=== PATIENT | female | born 1970 | race Caucasian/White ===

== ENCOUNTER → 2017-10-16 11:53 | Outpatient (CLI) | payer OTHER, MEDICAID, SELFPAY | PROVIDERS: Family Provider Physician Assistant; PCP Physician Assistant | DX: Z87.440 Personal history of urinary (tract) infections (principal) | CPT/HCPCS: 87086 ==

== ENCOUNTER → 2018-01-19 14:59 | Outpatient (CLI) | payer OTHER, MEDICAID, SELFPAY | PROVIDERS: Visit Provider Physician Assistant | DX: N20.0 Calculus of kidney (principal); N39.0 Urinary tract infection, site not specified | CPT/HCPCS: 87077; 87086; 87186 ==

== ENCOUNTER → 2019-01-05 09:53 | Outpatient (CLI) | payer OTHER, SELFPAY ==
[2019-01-05 12:07] LABS: Appearance Urine UA CLEAR; Bilirubin Urine UA NEGATIVE (NEGATIVE); Color Urine UA YELLOW; Glucose Urine UA NEGATIVE (Negative); Ketones Urine UA NEGATIVE (NEGATIVE); Leukocyte Esterase Urine UA 1+ (NEGATIVE); Nitrite Urine UA POSITIVE (Negative); Occult Blood Urine UA 2+ (Negative); Protein Urine UA TRACE (Negative); Urobilinogen Urine UA 0.2 E.U./dL (0.2)
[2019-01-05 12:08] LABS: pH Urine UA 5.5 (4.5-8.0)
[2019-01-05 12:17] LABS: Bacteria Urine Many (>30); Culture Indicated Urine Specimen Cultured; RBC Urine 1-5/HPF (0-5/HPF); Squamous Epithelial Cell Urine 1-5 /HPF (0-5/HPF); WBC Urine 10-30/HPF (0-5/HPF)
== END ==
PROVIDERS: PCP Family Medicine; Visit Provider Nurse Practitioner
DX: M54.5 Low back pain (principal); N39.0 Urinary tract infection, site not specified; R30.0 Dysuria; R50.9 Fever, unspecified
CPT/HCPCS: 81001; 87077; 87086; 87186

== ENCOUNTER 2019-03-09 06:33 | Emergency (ER) | payer OTHER, SELFPAY ==
[2019-03-09 07:12] VITALS: BP 164/83; PULSE 75; RESP 16; TEMP 36.8; O2SAT 100; BMI 28.3
--- NOTE | 2019-03-09 07:28 | ED.FEMALEGU ---
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 She had pain so bad it dropped her to her knees. She took Advil prior to arrival which has seemed to taken away her pain. She says that she never gets urinary frequency or dysuria with her infections. She says the last couple days she has been nauseous and had low-grade fever of 100 but she has no abdominal pain no vomiting. She says her back pain radiates across all her low back it has only been going on for few hours. Female Urogenital Radiation: L Flank and R Flank Related Data Previous Rx's Medication Instructions Recorded diph,pertuss(acel),tet vac(PF) 0.5 ml IM ONCE #0.5 ml 04/21/18 albuterol sulfate 90 mcg/actuation 2 puff INHALATION QID #8.5 gram 11/28/18 aerosol inhaler fluticasone propionate 110 1 puff INHALATION BID #36 gram 11/28/18 mcg/actuation HFA aerosol inhaler ciprofloxacin HCl 500 mg tablet 500 mg PO Q12H #20 tab 01/05/19 Allergies Allergy/AdvReac Type Severity Reaction Status Date / Time No Known Allergies Allergy Uncoded 03/09/19 07:15 Review of Systems Review of Systems Narrative: GENERAL: Denies chills, fatigue, malaise, fever, sweats, travel HEENT: Denies sinus pain, ear pain, sore throat, difficulty swallowing, neck pain RESPIRATORY: Denies dyspnea, cough, wheezing, hemoptysis, sputum. CARDIOVASCULAR: Denies chest pain, palpitations, orthopnea, edema GASTROINTESTINAL: Denies nausea, vomiting, abdominal pain, diarrhea, constipation, melena. : See HPI MUSCULOSKELETAL: Denies weakness, joint pain, or bony pain SKIN: No rash, no erythema, no pruritus NEUROLOGIC: Denies weakness, dizziness, headache, numbness, change in speech, confusion PSYCHIATRIC: No concerning psychosocial issues. 12 point review of systems is negative except for those stated above and HPI Patient History Medical History Kidney pain (Acute) Kidney stone (Acute) alcohol intake frequency: 0-2 drinks per day Substance Use Type: does not use Exam Initial Vital Signs Initial Vital Signs: Vital Signs Temperature 98.3 F 03/09/19 07:12 Pulse Rate 75 03/09/19 07:12 Respiratory Rate 16 03/09/19 07:12 Blood Pressure 164/83 H 03/09/19 07:12 Pulse Oximetry 100 03/09/19 07:12 GENERAL: Well-appearing, well-nourished and in no acute distress. HEENT: Head atraumatic,EOMI, pupils reactive, face symmetric, moist mucous membranes CARDIOVASCULAR: Regular rate and rhythm without murmurs, rubs or gallops. RESPIRATORY: Breath sounds equal bilaterally, no wheezes rales or rhonchi. ABDOMEN: Soft, nontender. Normoactive bowel sounds all 4 quadrants. No guarding or rebound. BACK: Lower lumbar pain : Minimal bilateral CVA tenderness EXTREMITIES: Normal range of motion, no clubbing or edema. Neurovascularly intact NEUROLOGICAL: Alert and oriented x4.Normal gait and speech. SKIN: Warm, dry, no laceration, no petechiae, no rashes or lesions. Course Orders Ordered: ED Orders 03/09/19 07:20 Urine Microscopic Stat Vital Signs Vital signs: Vital Signs - 8 hr 03/09/19 07:12 03/09/19 07:52 Temperature 98.3 F Pulse Rate 75 Respiratory Rate 16 18 Blood Pressure 164/83 H Pulse Oximetry 100 MDM - Female Genitourinary Lab Data Attestation: I reviewed the patient's lab results. Labs: Lab Results 03/09/19 Range/Units 07:20 Urine RBC 1-5/hpf (0-5/HPF) Urine WBC None seen (0-5/HPF) Urine Bacteria None seen (None) Ur Culture Indicated? Cult not indicated Urine Dip Bedside Urine Glucose Negative Bedside Urine Bilirubin - Negative Bedside Urine Ketone - Negative Urine Specific [place] 1.005 Bedside Urine Occult Blood +/- Bedside Urine pH 6.5 Bedside Urine Protein - Negative Bedside Urine Urobilinogen - Negative Bedside Urine Nitrite - Negative Bedside Urine Leukocytes - Negative Esterase MDM Narrative Medical decision making narrative: Patient actually did grow E coli 01/05/2019 she is placed Cipro. At that time her urine did have leukocytes and blood. At this time sudden onset of back pain sharp shooting worse with movement sounds musculoskeletal. Although I did discuss with her the possible it is an early infection and to wait and see follow-up with her PCP. Her pain is bilateral which is not consistent with kidney stone, and she says it does not feel like kidney stone. Discharge Plan Departure Patient Disposition: Home Clinical Impression: Back pain Qualifiers: Back pain location: low back pain Chronicity: acute Back pain laterality: bilateral Sciatica presence: without sciatica Qualified Code(s): M54.5 - Low back pain Discharge Date/Time: 03/09/19 07:52 Instructions: DI for Low Back Pain Activity Restrictions/Additional Instructions: *You have been diagnosed with back pain *What to do: At this time it is possible that you have an early infection. At this time I recommend waiting for culture to return and not starting on immediate antibiotic however if symptoms worsen or culture is positive eat you may need antibiotics. If culture is positive we will call you in 2-3 days. *Continue to take medications as directed *Follow up with your primary care provider in 2-3 days *Return to ER if you should have increasing back pain fever persistent vomiting or any new, worsening or concerning symptoms Prescriptions: No Action Adacel(Tdap Adolesn/Adult)(PF) 2 Lf-(2.5-5-3-5 mcg)-5Lf/0.5 mL suspension 0.5 ml IM ONCE Qty: 0.5 RF: 0 ProAir HFA 90 mcg/actuation HFA aerosol inhaler 2 puff INHALATION QID Qty: 8.5 RF: 5 Flovent HFA 110 mcg/actuation HFA aerosol inhaler 1 puff INHALATION BID Qty: 36 RF: 3 ciprofloxacin HCl [Cipro] 500 mg tablet 500 mg PO Q12H Qty: 20 RF: 0 Referrals: Mona Wilkins DO [Primary Care Provider] -
[2019-03-09 07:45] LABS: Bacteria Urine None Seen; WBC Urine None Seen (0-5/HPF)
[2019-03-09 07:52] VITALS: RESP 18
[2019-03-09 08:10] LABS: Culture Indicated Urine Cult Not Indicated; RBC Urine 1-5/HPF (0-5/HPF)
== END 2019-03-09 07:52 | disposition home or self-care (01) ==
PROVIDERS: Emergency Provider Emergency Medicine; PCP Family Medicine
DX: M54.5 Low back pain (principal)
CPT/HCPCS: 81003; 81015; 99281; 99282

== ENCOUNTER → 2019-05-28 18:59 | Outpatient (CLI) | payer OTHER, SELFPAY | PROVIDERS: PCP Family Medicine; Visit Provider Physician Assistant | DX: R10.9 Unspecified abdominal pain (principal) | CPT/HCPCS: 87086 ==

== ENCOUNTER 2019-05-28 19:16 | Emergency (ER) | payer OTHER, SELFPAY ==
--- NOTE | 2019-05-28 19:23 | DI.CT.S_ITS ---
PROCEDURE: CT ABDOMEN PELVIS WO CON INDICATIONS: right flank pain, history of 3 ureteral stones and UTI TECHNIQUE: Noncontrast 5 mm thick sections acquired from the diaphragms to the symphysis. 5 mm coronal and sagittal reformats were then performed. For radiation dose reduction, the following was used: automated exposure control, adjustment of mA and/or kV according to patient size. COMPARISON: [facility], CT, KIDNEY/ URETER/BLADDER, 02/28/2017, 13:33. FINDINGS: Image quality: Excellent. ABDOMEN: Lung bases: Lung bases are clear. Heart size is normal. Solid organs: Liver is normal in size. Gallbladder is unremarkable. Pancreas is normal in contours. Spleen is normal in size. No adrenal nodules. Right kidney: Multiple very tiny nonobstructing stones. Paintbrush calcifications consistent with renal tubular acidosis. Moderate to severe hydronephrosis. Right ureter: Dilated to the level of the distal ureter just above the ureterovesical junction, where there is an obstructing 3 x 7 mm stone. Left kidney: Chronically small and shrunken with a calcifications and a single 3 mm nonobstructing lower pole stone. Left ureter: Unremarkable. Peritoneum and bowel: Unenhanced bowel loops demonstrate normal wall thickness and caliber. No free fluid or air. Nodes and vessels: No retroperitoneal or mesenteric adenopathy by size criteria. Aorta and inferior vena cava are normal in caliber. Miscellaneous: No ventral hernias. PELVIS: Genitourinary: Bladder wall thickness is normal. Miscellaneous: No inguinal hernias or adenopathy. Bones: No suspicious bony lesions. No vertebral body compression fractures. IMPRESSION: 1. A 3 x 7 mm stone in the distal right ureter results in moderate to severe right hydronephrosis. 2. Findings in the right kidney are consistent with renal tubular acidosis. There are also multiple tiny nonobstructing stones in the right kidney. 3. Chronically small and shrunken left kidney, which contains a 3 mm nonobstructing stone. Dictated by: Thang Landeros M.D. on 05/28/2019 at 20:33 Approved by: Thang Landeros M.D. on 05/28/2019 at 20:38
[2019-05-28 19:31] LABS: Bacteria Urine None Seen
[2019-05-28 19:32] VITALS: BP 162/82; PULSE 72; RESP 15; TEMP 36.6; O2SAT 99; BMI 29.2
[2019-05-28 19:36] LABS: Appearance Urine UA CLEAR; Bilirubin Urine UA NEGATIVE (NEGATIVE); Color Urine UA YELLOW; Glucose Urine UA NEGATIVE (Negative); Ketones Urine UA NEGATIVE (NEGATIVE); Leukocyte Esterase Urine UA NEGATIVE (NEGATIVE); Nitrite Urine UA NEGATIVE (Negative); Occult Blood Urine UA 1+ (Negative); Protein Urine UA TRACE (Negative); Urobilinogen Urine UA 0.2 E.U./dL (0.2)
[2019-05-28 19:44] LABS: Culture Indicated Urine Cult Not Indicated; RBC Urine 5-10/HPF (0-5/HPF); Squamous Epithelial Cell Urine 0-1 /HPF (0-5/HPF); WBC Urine 1-5/HPF (0-5/HPF)
[2019-05-28] MEDS: KETOROLAC 60 MG/2 ML VIAL 30 MG IV (19:47)
[2019-05-28] MEDS: ONDANSETRON 4 MG/2 ML INJ IV (19:47)
[2019-05-28 20:40] LABS: Add Manual Diff / Slide Review NO; Basophils Absolute Auto 100 /uL (0-100); Basophils Percent Auto 0.7 % (0-2); Eosinophils Absolute Auto 300 /uL (0-450); Eosinophils Percent Auto 3.7 % (2-4); Hematocrit 42.1 % (36-46); Hemoglobin 14.1 g/dL (12.0-16.0); Lymphocytes Absolute Auto 2300 /uL (1100-4500); Lymphocytes Percent Auto 26.6 % (25-40); Mean Corpuscular HGB Conc 33.5 % (30-36); Mean Corpuscular Hemoglobin 30.8 PG (26-34); Mean Corpuscular Volume 91.7 fL (80-100); Monocytes Absolute Auto 800 /uL (0-900); Monocytes Percent Auto 9.1 % (3-14); Neutrophils Absolute Auto 5100 /uL (1500-7000); Neutrophils Percent Auto 59.9 % (50-75); Platelet Count 219 X10^3/uL (150-400); Red Blood Cell Count 4.59 X10^6/uL (4.0-5.2); Red Cell Distribution Width 13.6 % (11.6-14.8); White Blood Cell Count 8.6 X10^3/uL (4.5-11.0)
--- NOTE | 2019-05-28 21:00 | ED_ITS ---
HPI - Female Genitourinary General Chief complaint: Urogenital-Female Stated complaint: possible uti Time Seen by Provider: 05/28/19 19:22 Source: patient Mode of arrival: Family Vehicle Limitations: no limitations History of Present Illness HPI Narrative: The patient is a 48-year-old female who presented with severe right flank pain to the walk-in clinic. The healthcare worker in the walk-in clinic tried to order an outpatient CT scan of her abdomen however was unable to do so the patient was sent to the emergency department. In the clinic the patient had hematuria with leukocyte esterase positive. He question whether not the patient had a urinary tract infection or a kidney stone. The patient describes the pain and discomfort is severe crampy discomfort that is intermittently sharp. She states that it feels like when she has had kidney stones in the past. She denies any fall or injury. She does not have a history of hypertension or diabetes mellitus. She denies any fever chills sweats headache shortness of breath cough chest pain palpitations or dizziness. She has been nauseous but has had no vomiting or diarrhea. She has increased urinary frequency and mild dysuria. She does not smoke cigarettes or drink alcohol. Related Data Previous Rx's Medication Instructions Recorded diph,pertuss(acel),tet vac(PF) 0.5 ml IM ONCE #0.5 ml 04/21/18 albuterol sulfate 90 mcg/actuation 2 puff INHALATION QID #8.5 gram 11/28/18 aerosol inhaler fluticasone propionate 110 1 puff INHALATION BID #36 gram 11/28/18 mcg/actuation HFA aerosol inhaler Allergies Allergy/AdvReac Type Severity Reaction Status Date / Time No Known Allergies Allergy Verified 05/28/19 19:29 Review of Systems Review of Systems Narrative: Her review of systems were all negative except for those mentioned in the history of present illness. Patient History Medical History Kidney pain (Acute) Kidney stone (Acute) alcohol intake frequency: 0-2 drinks per day Substance Use Type: does not use Exam Narrative Exam Narrative: PHYSICAL EXAM: CONSTITUTIONAL: Awake, Alert, Oriented, Coherent, appears to be in moderate distress at the time that I am seeing her. HEAD: AT/NC EENT: PERRL, FROM of eyes, no discharge,. Oral mucosa is moist and pink, posterior pharynx is without erythema or exudate. NECK: Supple, no obvious JVD, Trachea is midline without stridor, SPINE: No gross deformity, no palpable tenderness of the cervical, thoracic, lumbar or sacral spine. Mild right costovertebral angle tenderness. THORAX: No deformity, retractions, chest wall tenderness,. LUNGS: Clear with symmetrical breath sounds without respiratory distress HEART: Normal heart tones, regular rhythm and rate without murmur. ABDOMEN: Soft, mild tenderness on palpation of the right anterior flank without guarding rebound or rigidity. There are no palpable organomegaly or masses n oted. EXTREMITIES: No edema, cyanosis, deformity or tenderness. SKIN: No rash, bruising, petechiae or purpura. NEURO: Awake, alert, oriented, conversive, cranial nerves II-XII are symmetrical and normal, moves all 4 extremities and is ambulatory Initial Vital Signs Initial Vital Signs: Vital Signs Temperature 98 F 05/28/19 19:32 Pulse Rate 72 05/28/19 19:32 Respiratory Rate 15 05/28/19 19:32 Blood Pressure 162/82 H 05/28/19 19:32 Pulse Oximetry 99 05/28/19 19:32 Course Course Course Narrative: 2100: The patient declines any laboratory draw. Her white blood count his 8.6 with a hemoglobin of 14.1. We do not know what her renal function and electrolytes are. Her urinalysis reveals hematuria with minimal white blood cells and minimal epithelial cells and is not indicated for culture and sensitivity. There is no evidence of any urinary tract infection at this time. A noncontrast CT of her abdomen and pelvis reveals: 1. A 3 x 7 mm stone in the distal right ureter results in moderate to severe right hydronephrosis. 2. Findings in the right kidney are consistent with renal tubular acidosis. There are also multiple pole tiny nonobstructing stones in the right kidney. 3. Chronically small and shrunken left kidney which contains 3 mm nonobstructing stone. 2144: We are calling to try and find out if is available to see the patient in follow-up. Otherwise we will send the patient or refer the patient to Urology. I went into the patient's room to inform her of the arrangements and follow-up that we had arranged and she was not in the room. We could not find the patient and we believe the patient eloped. I spoke with Dr. Nick who wanted the patient to call his office in the morning and make a follow-up appointment. He recommended that we place the patient on tramadol 50-100 mg every 6 hours as needed for pain and discomfort in conjunction with 500 to a 1000 mg of acetaminophen. He prescribed also Tamulosin 0.4mg daily for the next 5 days. Most likely she will pass the stone. The nurses state that the patient significantly improved after the Toradol. Orders Ordered: Discontinued Medications Ketorolac Tromethamine (Toradol) 30 mg IV NOW ONE Stop: 05/28/19 19:24 Last Admin: 05/28/19 19:47 Dose: 30 mg Documented by: TOMAS Ondansetron HCl (Zofran) 4 mg IV NOW ONE Stop: 05/28/19 19:24 Last Admin: 05/28/19 19:47 Dose: 4 mg Documented by: TOMAS Vital Signs Vital signs: Vital Signs - 8 hr 05/28/19 21:36 Pulse Rate 73 Respiratory Rate 14 Blood Pressure [Right Arm] 171/79 H Pulse Oximetry 99 MDM - Female Genitourinary Lab Data Result diagrams: 05/28/19 20:23 05/28/19 Unknown Labs: Lab Results 05/28/19 05/28/19 05/28/19 Range/Units 19:28 20:23 Unknown WBC 8.6 (4.5-11.0) X10^3/uL RBC 4.59 (4.0-5.2) X10^6/uL Hgb 14.1 (12.0-16.0) g/dL Hct 42.1 (36-46) % MCV 91.7 (80-100) fL MCH 30.8 (26-34) PG MCHC 33.5 (30-36) % RDW 13.6 (11.6-14.8) % Plt Count 219 (150-400) X10^3/uL Neut % (Auto) 59.9 (50-75) % Lymph % (Auto) 26.6 (25-40) % [place] % (Auto) 9.1 (3-14) % Eos % (Auto) 3.7 (2-4) % Baso % (Auto) 0.7 (0-2) % Neut # (Auto) 5100 (7975-9417) /uL Lymph # (Auto) 2300 (5891-0950) /uL [place] # (Auto) 800 (0-900) /uL Eos # (Auto) 300 (0-450) /uL Baso # (Auto) 100 (0-100) /uL Sodium Cancelled Potassium Cancelled Chloride Cancelled Carbon Dioxide Cancelled BUN Cancelled Creatinine Cancelled Estimated GFR Cancelled BUN/Creatinine Ratio Cancelled Glucose Cancelled Calcium Cancelled Total Bilirubin Cancelled AST Cancelled ALT Cancelled Alkaline Phosphatase Cancelled Total Protein Cancelled Albumin Cancelled Globulin Cancelled Albumin/Globulin Ratio Cancelled Urine Color Yellow Urine Appearance Clear Urine pH 6.0 (4.5-8.0) Ur Specific [place] 1.020 (1.000-1.035) Urine Protein Trace H (Negative) Urine Glucose (UA) Negative (Negative) g/dL Urine Ketones Negative (NEGATIVE) Urine Occult Blood 1+ H (Negative) Urine Nitrate Negative (Negative) Urine Bilirubin Negative (NEGATIVE) Urine Urobilinogen 0.2 (0.2) E.U./dL Ur Leukocyte Esterase Negative (NEGATIVE) Urine RBC 5-10/hpf H (0-5/HPF) Urine WBC 1-5/hpf (0-5/HPF) Ur Squamous Epith Cells 0-1 /hpf (0-5/HPF) Urine Bacteria None seen (None) Ur Culture Indicated? Cult not indicated Discharge Plan Departure Patient Disposition: Left Against Medical Advice Clinical Impression: Left against medical advice Discharge Date/Time: 05/28/19 22:00 Prescriptions: No Action Adacel(Tdap Adolesn/Adult)(PF) 2 Lf-(2.5-5-3-5 mcg)-5Lf/0.5 mL suspension 0.5 ml IM ONCE Qty: 0.5 RF: 0 ProAir HFA 90 mcg/actuation HFA aerosol inhaler 2 puff INHALATION QID Qty: 8.5 RF: 5 Flovent HFA 110 mcg/actuation HFA aerosol inhaler 1 puff INHALATION BID Qty: 36 RF: 3 Stand Alone Forms: Against Medical Advice ED Sign-out Cosign ED Attending Cosignature Attestation: I was immediately available in the department for consultation. This documentation has been reviewed and I agree with assessment and plan. Supervised by Dl Guerrero MD
--- NOTE | 2019-05-28 21:34 | PC.NURSE ---
Patient refused additional lab draws from the director of labor and delivery. She also requested to have her IV removed. Patient stated that her pain goals were met and no longer wished to have an IV because it was bothering her.
[2019-05-28 21:36] VITALS: BP 171/79; PULSE 73; RESP 14; O2SAT 99
== END 2019-05-28 22:00 | disposition left against medical advice (07) ==
PROVIDERS: Emergency Provider Emergency Medicine; PCP Family Medicine
DX: N20.0 Calculus of kidney (principal); Z87.442 Personal history of urinary calculi; R31.9 Hematuria, unspecified; N13.30 Unspecified hydronephrosis; R10.9 Unspecified abdominal pain
CPT/HCPCS: 36415; 74176; 81001; 85025; 87086; 96374; 96375; 99284; J1885; J2405

== ENCOUNTER → 2019-07-26 15:43 | Outpatient (CLI) | payer OTHER, SELFPAY ==
[2019-07-27 06:16] LABS: COVID19 Sendout Not Detected (Not Detect)
== END ==
PROVIDERS: PCP Family Medicine; Visit Provider Registered Nurse
DX: R06.02 Shortness of breath (principal)
CPT/HCPCS: 87635

== ENCOUNTER → 2020-01-20 10:53 | Outpatient (CLI) | payer OTHER, BC, SELFPAY ==
[2020-01-20 12:25] LABS: Add Manual Diff / Slide Review NO; Basophils Absolute Auto 100 /uL (0-100); Basophils Percent Auto 0.9 % (0-2); Eosinophils Absolute Auto 400 /uL (0-450); Eosinophils Percent Auto 7.2 % (2-4); Hematocrit 39.5 % (36-46); Hemoglobin 13.4 g/dL (12.0-16.0); Lymphocytes Absolute Auto 1500 /uL (1100-4500); Lymphocytes Percent Auto 25.5 % (25-40); Mean Corpuscular HGB Conc 33.9 % (30-36); Mean Corpuscular Hemoglobin 30.6 PG (26-34); Mean Corpuscular Volume 90.1 fL (80-100); Monocytes Absolute Auto 400 /uL (0-900); Monocytes Percent Auto 6.7 % (3-14); Neutrophils Absolute Auto 3600 /uL (1500-7000); Neutrophils Percent Auto 59.7 % (50-75); Platelet Count 211 X10^3/uL (150-400); Red Blood Cell Count 4.39 X10^6/uL (4.0-5.2); Red Cell Distribution Width 13.2 % (11.6-14.8)
[2020-01-20 12:34] LABS: Hemoglobin A1C% w Est Avg Glu 5.5 % (4.0-6.0)
[2020-01-20 12:48] LABS: Alanine Aminotransferase 52 IU/L (<35); Albumin 4.7 g/dL (3.5-5.0); Albumin Globulin Ratio 1.8 (1.0-2.8); Alkaline Phosphatase 50 U/L (38-126); Aspartate Aminotransferase 39 IU/L (14-36); BUN Creatinine Ratio 24.4 (6-22); Bilirubin Total 0.3 mg/dL (0.2-1.3); Blood Urea Nitrogen 22 mg/dL (7-17); Calcium 10.3 mg/dL (8.4-10.2); Carbon Dioxide 31 mmol/L (22-32); Chloride 102 mmol/L (98-107); Cholesterol 197 mg/dL (140-199); Estimated Glomerular Filt Rate > 60.0 mL/min (>60); Globulin 2.6 g/dL (1.7-4.1); Glucose 84 mg/dL (70-100); HDL Cholesterol 94 mg/dL (40-60); HEMOLYSIS < 15 (0-50); LDL Cholesterol Calculated 82 mg/dL (<100); Sodium 137 mmol/L (137-145); Total Protein 7.3 g/dL (6.3-8.2); Triglycerides 105 mg/dL (35-150)
[2020-01-20 13:22] LABS: TSH w/ Reflex to FT4 2.44 uIU/mL (0.47-4.68)
== END ==
PROVIDERS: PCP Family Medicine; Referring Provider Family Medicine; Visit Provider Family Medicine
DX: E78.5 Hyperlipidemia, unspecified (principal); Z12.31 Encounter for screening mammogram for malignant neoplasm of breast; Z13.1 Encounter for screening for diabetes mellitus; Z13.228 Encounter for screening for other metabolic disorders; Z13.29 Encounter for screening for other suspected endocrine disorder; N95.1 Menopausal and female climacteric states; R53.83 Other fatigue
CPT/HCPCS: 36415; 80053; 80061; 83036; 84443; 85025

== ENCOUNTER → 2020-05-10 08:25 | Outpatient (CLI) | payer BC, SELFPAY ==
--- NOTE | 2020-05-10 08:26 | DI.RAD.S_ITS ---
PROCEDURE: XR KUB INDICATIONS: left flank pain, hx stones TECHNIQUE: One view of the abdomen acquired. COMPARISON: [facility], CT, KIDNEY/ URETER/BLADDER, 02/28/2017, 13:33. [facility], CT, CT ABDOMEN PELVIS WO CON, 05/28/2019, 20:00. [facility], CR, KUB XRAY (1 VIEW ABDOMEN), 06/16/2016, 10:07. [facility], CR, KUB XRAY (1 VIEW ABDOMEN), 05/18/2016, 12:06. FINDINGS: Surgical changes and devices: None. Bowel: Bowel gas pattern is normal. Soft tissues: No suspicious abdominal calcifications. There are calcifications over the pelvis bilaterally with in this patient with prior CT evidence of a distal obstructive right ureteral stone in May of 2019, and prior CT scanning. Visualized solid organ contours appear normal in size. Bones: No suspicious bony lesions. IMPRESSION: The prior CT scanning has documented an atrophic diminutive left kidney. A definite source of left-sided pain is not seen. A prior 05/[address] KUB had shown an obstructive distal right ureteral stone. Calcifications in the expected area of the distal right ureter are present but it is unclear whether these are phleboliths or distal ureteral stones. Given this concern and the absence of documented stone extraction on the right the ordering healthcare provider was called and the findings were discussed in detail with recommendation for consideration of follow-up to determine treatment of the documented distal right ureteral stone in this patient with 1 appropriate functioning kidney, on the right. CT KUB also could be obtained for documentation of resolution of the obstructive right distal ureteral stone. Dictated by: Dimas Pearce M.D. on 05/10/2020 at 9:25 Approved by: Dimas Pearce M.D. on 05/10/2020 at 9:40
[2020-05-10 09:54] LABS: Add Manual Diff / Slide Review NO; Basophils Absolute Auto 100 /uL (0-100); Basophils Percent Auto 1.3 % (0-2); Eosinophils Absolute Auto 300 /uL (0-450); Eosinophils Percent Auto 6.3 % (2-4); Hematocrit 39.8 % (36-46); Hemoglobin 13.5 g/dL (12.0-16.0); Lymphocytes Absolute Auto 1500 /uL (1100-4500); Lymphocytes Percent Auto 29.1 % (25-40); Mean Corpuscular HGB Conc 33.9 % (30-36); Mean Corpuscular Hemoglobin 30.6 PG (26-34); Mean Corpuscular Volume 90.1 fL (80-100); Monocytes Absolute Auto 400 /uL (0-900); Monocytes Percent Auto 8.3 % (3-14); Neutrophils Absolute Auto 2800 /uL (1500-7000); Platelet Count 192 X10^3/uL (150-400); Red Blood Cell Count 4.42 X10^6/uL (4.0-5.2); Red Cell Distribution Width 13.6 % (11.6-14.8)
[2020-05-10 10:49] LABS: Alanine Aminotransferase 18 IU/L (<35); Albumin 4.4 g/dL (3.5-5.0); Albumin Globulin Ratio 1.8 (1.0-2.8); Alkaline Phosphatase 46 U/L (38-126); Aspartate Aminotransferase 25 IU/L (14-36); Bilirubin Total 0.2 mg/dL (0.2-1.3); Blood Urea Nitrogen 17 mg/dL (7-17); Calcium 10.2 mg/dL (8.4-10.2); Carbon Dioxide 30 mmol/L (22-32); Chloride 101 mmol/L (98-107); Estimated Glomerular Filt Rate > 60.0 mL/min (>60); Globulin 2.5 g/dL (1.7-4.1); Glucose 75 mg/dL (70-100); HEMOLYSIS < 15 (0-50); Potassium 4.2 mmol/L (3.4-5.1); Sodium 136 mmol/L (137-145); Total Protein 6.9 g/dL (6.3-8.2)
== END ==
PROVIDERS: PCP Family Medicine; Referring Provider Nurse Practitioner Family; Visit Provider Nurse Practitioner Family
DX: R10.9 Unspecified abdominal pain (principal); N34.3 Urethral syndrome, unspecified
CPT/HCPCS: 36415; 74018; 80053; 85025; 87086

== ENCOUNTER → 2021-05-11 14:11 | Outpatient (CLI) | payer OTHER, MEDICAID, SELFPAY ==
--- NOTE | 2021-05-11 14:15 | DI.CT.S_ITS ---
PROCEDURE: CT CHEST WO CON INDICATIONS: SHORTNESS OF BREATH TECHNIQUE: Noncontrast 5 mm thick sections acquired from the pulmonary apices to the posterior costophrenic angles. 1 mm lung window, 5 mm thick coronal and sagittal and 7 mm axial MIP reformats were then acquired. For radiation dose reduction, the following was used: automated exposure control, adjustment of mA and/or kV according to patient size. COMPARISON: [facility], CT, CT ABDOMEN PELVIS WO CON, 05/28/2019, 20:00. FINDINGS: Image quality: Excellent. Lungs and pleura: There is a 2 mm nodule in the left upper lobe (series 2, image 20). No acute air space opacities. Mild subpleural scars in lingula and right lower lobe. No pleural effusions or pneumothorax. Central and peripheral airways are patent and normal in caliber. Mediastinum: Heart size is normal. No pericardial effusion. No mediastinal adenopathy by size criteria. Thoracic aorta and central pulmonary arteries are normal in size. Esophagus is normal in caliber. No hiatal hernia. Bones and chest wall: No suspicious bony lesions. No vertebral body compression fractures. No axillary or supraclavicular adenopathy by size criteria. Thyroid gland is normal. Abdomen: Severe atrophy of the left kidney. Mild right renal pelviectasis, partially visualized. IMPRESSION: 1. No acute abnormalities. 2. A 2 mm nodule in the left upper lobe. Please see enclosed follow-up recommendation. 3. Severe left renal atrophy. 4. Partial visualization of right renal pelviectasis. If clinically indicated, renal ultrasound or CT KUB may be obtained. Fleischner Society criteria for SOLID lung nodule followup. Nodule size (mm)Low-risk patientHigh-risk patient?4No follow-up neededFollow-up at 12 mo; if no change, no further follow-up>3-1Zomsif-dp CT at 12 mo; if no change, no further follow-up needed.Initial follow-up CT at 6-12 mo, then 18-24 mo if no change. >6-8Initial follow-up CT at 6-12 mo, then 18-24 mo if no change. Initial follow-up CT at 3-6 mo, then 9-12 mo and 24 mo if no change. >8Follow-up CT at 3, 9, 24 mo. Or PET and/or biopsy.Same as for low-risk pts. Dictated by: Cindy Manriquez M.D. on 05/11/2021 at 16:32 Approved by: Cindy Manriquez M.D. on 05/11/2021 at 16:39
== END ==
PROVIDERS: Referring Provider Physician Assistant; Visit Provider Physician Assistant
DX: R06.02 Shortness of breath (principal); R91.1 Solitary pulmonary nodule; N26.1 Atrophy of kidney (terminal); N28.89 Other specified disorders of kidney and ureter
CPT/HCPCS: 71250

== ENCOUNTER → 2021-06-27 07:57 | Outpatient (CLI) | payer OTHER, MEDICAID, SELFPAY ==
--- NOTE | 2021-06-27 | DI.US.S_ITS ---
PROCEDURE: US PELVIC COMPLETE INDICATIONS: PERIMENOPAUSAL TECHNIQUE: Real-time scanning was performed of the pelvic organs, with image documentation. Additional endovaginal scanning was necessary due to incomplete visualization of the adnexal and endometrial structures by transabdominal scanning. COMPARISON: [facility], CT, CT ABDOMEN PELVIS WO CON, 05/28/2019, 20:00. FINDINGS: Uterus: Uterus is anteverted and normal in size at 8.5 x 3.7 x 5.3 cm. The myometrium is homogeneous. The endometrium measures 7 mm combined thickness, which is considered to be within normal limits for a patient that is not postmenopausal. Ovaries: The left ovary measures 1.8 x 1 x 2.5 cm and demonstrates an unremarkable appearance, with an 8 mm cystic follicle noted. The left ovary is not seen. Other: No pathologic free abdominal or pelvic fluid. IMPRESSION: Normal pelvic ultrasound. We strive to produce accurate, complete, and clear reports of imaging services. To assist us in improving patient care, this report was composed using standard report templates and voice recognition software. Therefore, it may contain abnormal punctuation, insertions and/or omissions. Occasional wrong-word or sound-alike substitutions may occur. Though we review the report and make efforts to correct it, we do recommend that the report be read carefully in proper context to recognize any text inaccuracies. Dictated by: Zane Randolph M.D. on 06/27/2021 at 8:08 Approved by: Zane Randolph M.D. on 06/27/2021 at 8:09
== END ==
PROVIDERS: PCP Physician Assistant; Referring Provider Physician Assistant; Visit Provider Physician Assistant
DX: N92.6 Irregular menstruation, unspecified (principal)
CPT/HCPCS: 76830; 76856

== ENCOUNTER → 2021-11-07 08:03 | Outpatient (CLI) | payer OTHER, MEDICAID, SELFPAY ==
--- NOTE | 2021-11-07 | DI.MG.S_ITS ---
BILATERAL DIGITAL SCREENING MAMMOGRAM 3D/2D WITH CAD: 11/07/2021 CLINICAL: Baseline exam. Routine screening. No prior exams were available for comparison. There are scattered areas of fibroglandular density in both breasts (category b / 25%-50% glandular tissue). Current study was also evaluated with a Computer Aided Detection (CAD) system. No significant masses, calcifications, or other findings are seen in either breast. IMPRESSION: NEGATIVE There is no mammographic evidence of malignancy. A 1 year screening mammogram is recommended. Based on the Tyrer Cuzick model (a risk assessment model) the patient's lifetime risk is 5.5% and her 10 year risk is 1.2%. According to the ACR, ACS, and NCCN guidelines, an annual breast MRI exam along with mammogram is recommended if the patient's lifetime risk is 20% or greater. This exam was interpreted at Station ID: [id number]. NOTE: For mammograms, a report in lay terms will be sent to the patient. Approximately 15% of breast malignancies will not be visualized mammographically. In the management of a palpable breast mass, a negative mammogram must not discourage biopsy of a clinically suspicious lesion. Electronically Signed By: Ramya staples/scott:11/07/2021 12:11:38 letter sent: Normal Exam ACR BI-RADS Category 1: Negative [id number]
== END ==
PROVIDERS: PCP Family Medicine; Referring Provider Family Medicine; Visit Provider Family Medicine
DX: Z12.31 Encounter for screening mammogram for malignant neoplasm of breast (principal)
CPT/HCPCS: 77063; 77067

== ENCOUNTER → 2022-01-13 09:51 | Outpatient (CLI) | payer OTHER, MEDICAID, SELFPAY ==
[2022-01-13 10:32] LABS: Add Manual Diff / Slide Review NO; Basophils Absolute Auto 0 /uL (0-100); Basophils Percent Auto 1.1 % (0-2); Eosinophils Absolute Auto 400 /uL (0-450); Eosinophils Percent Auto 10.3 % (2-4); Hematocrit 39.6 % (36-46); Hemoglobin 13.5 g/dL (12.0-16.0); Lymphocytes Absolute Auto 1100 /uL (1100-4500); Lymphocytes Percent Auto 28.4 % (25-40); Mean Corpuscular HGB Conc 34.1 % (30-36); Mean Corpuscular Hemoglobin 29.8 PG (26-34); Mean Corpuscular Volume 87.3 fL (80-100); Monocytes Absolute Auto 300 /uL (0-900); Monocytes Percent Auto 7.4 % (3-14); Neutrophils Absolute Auto 2100 /uL (1500-7000); Neutrophils Percent Auto 52.8 % (50-75); Platelet Count 213 X10^3/uL (150-400); Red Blood Cell Count 4.54 X10^6/uL (4.0-5.2); Red Cell Distribution Width 13.4 % (11.6-14.8); White Blood Cell Count 3.9 X10^3/uL (4.5-11.0)
[2022-01-13 10:50] LABS: Alanine Aminotransferase 21 IU/L (<35); Albumin 4.3 g/dL (3.5-5.0); Albumin Globulin Ratio 1.7 (1.0-2.8); Alkaline Phosphatase 49 U/L (38-126); Aspartate Aminotransferase 22 IU/L (14-36); BUN Creatinine Ratio 19.8 (6-22); Bilirubin Total 0.6 mg/dL (0.2-1.3); Blood Urea Nitrogen 17 mg/dL (7-17); Calcium 9.4 mg/dL (8.4-10.2); Carbon Dioxide 25 mmol/L (22-32); Chloride 105 mmol/L (98-107); Cholesterol 183 mg/dL (140-199); Estimated Glomerular Filt Rate > 60 mL/min (>60); Globulin 2.6 g/dL (1.7-4.1); Glucose 105 mg/dL (70-100); HDL Cholesterol 107 mg/dL (40-60); HEMOLYSIS < 15 (0-50); LDL Cholesterol Calculated 66 mg/dL (<100); Potassium 4.2 mmol/L (3.4-5.1); Sodium 137 mmol/L (137-145); Total Protein 6.9 g/dL (6.3-8.2); Triglycerides 48 mg/dL (35-150)
[2022-01-13 11:03] LABS: Follicle Stimulating Hormone 68.7 mIU/mL; Progesterone, Total 0.64 ng/mL
[2022-01-13 11:16] LABS: TSH w/ Reflex to FT4 3.24 uIU/mL (0.47-4.68)
[2022-01-13 11:18] LABS: Estradiol, Total 129.9 pg/mL
[2022-01-13 15:04] LABS: Luteinizing Hormone 84.5 mIU/mL
== END ==
PROVIDERS: PCP Family Medicine; Referring Provider Family Medicine; Visit Provider Family Medicine
DX: Z13.220 Encounter for screening for lipoid disorders (principal); N95.1 Menopausal and female climacteric states; N92.6 Irregular menstruation, unspecified; N95.9 Unspecified menopausal and perimenopausal disorder
CPT/HCPCS: 36415; 80053; 80061; 82670; 83001; 83002; 84144; 84443; 85025

== ENCOUNTER → 2022-03-15 08:20 | Outpatient (CLI) | payer OTHER, MEDICAID, SELFPAY ==
[2022-03-15 10:23] LABS: Hemoglobin A1C% w Est Avg Glu 5.6 % (4.0-6.0)
== END ==
PROVIDERS: PCP Family Medicine; Referring Provider Family Medicine; Visit Provider Family Medicine
DX: R73.01 Impaired fasting glucose (principal)
CPT/HCPCS: 36415; 83036

== ENCOUNTER → 2022-06-15 08:23 | Outpatient (CLI) | payer OTHER, MEDICAID, SELFPAY ==
--- NOTE | 2022-06-15 | DI.CT.S_ITS ---
PROCEDURE: CT CHEST WO CON INDICATIONS: Solitary pulmonary nodule/shortness of breath TECHNIQUE: Noncontrast 2.0-2.5 mm thick sections acquired from the pulmonary apices to the posterior costophrenic angles. 7 mm thick axial MIP and 5 mm coronal and sagittal reformats were then acquired. A low radiation dose technique was utilized. COMPARISON: [facility], CT, CT ABDOMEN PELVIS WO [facility], 05/28/2019, 20:00. [facility], CT, CT CHEST WO [facility], 05/11/2021, 14:37. FINDINGS: Image quality: Diagnostic, given the low radiation dose technique. Lungs and pleura: Left upper lobe pulmonary nodule measuring 0.2 cm, (), unchanged. No mass. Mild atelectasis or scarring in the lingula. No acute airspace opacity. Airways are clear. No pleural effusion. No pneumothorax. Mediastinum: Heart size is normal. No pericardial effusion. No mediastinal adenopathy by size criteria. Thoracic aorta and central pulmonary arteries are normal in size. Esophagus is normal in caliber. No hiatal hernia. Bones and chest wall: No suspicious bony lesions. No vertebral body compression fractures. No axillary or supraclavicular adenopathy by size criteria. Thyroid gland is unremarkable. Abdomen: Visualized upper abdomen solid organs and bowel loops appear normal in the absence of contrast. Atrophic left kidney. Possible punctate nonobstructing right kidney stone. IMPRESSION: 1. No new or enlarging pulmonary nodules. Left upper lobe pulmonary nodule measuring 0.2 cm is unchanged since 2021. 2. No acute airspace opacity. 3. Punctate right kidney stone. Fleischner Society criteria for SOLID lung nodule followup. Nodule size (mm)Low-risk patientHigh-risk patient<6 (single or multiple)No routine followup.Optional CT at 12 months. 6-8 (single or multiple)CT at 6-12 months, then optional CT at 18-24 mo.CT at 6-12 months, then CT at 18-24 months. >8 (single)CT at 3 months, PET-CT, or biopsy. Same as for low-risk pts. >8 (multiple)CT at 3-6 months, then optional CT at 18-24 mo.CT at 3-6 months, then CT at 18-24 months. Fleischner Society criteria for SUB-SOLID lung nodule followup. Solitary pure ground-glass nodules<6 mm (ground glass or part solid)No followup needed. 6 mm or larger (ground glass)CT at 6-12 months to confirm persistence, then CT every 2 years until 5 years.6 mm or larger (part solid)CT at 3-6 months to confirm persistence, then annual CT until 5 years if unchanged and solid component remains <6 mm. Multiple sub-solid nodules<6 mmCT at 3-6 months, then CT consider at 2 & 4 years for high risk patients. [address] at 3-6 months. Subsequent management based on most suspicious lesions. Recommendations do not apply to lung cancer screening, patients with immunosuppression, or patients with known primary cancer. Dictated by: Tai Zambrnao M.D. on 06/15/2022 at 9:11 Approved by: Tai Zambrano M.D. on 06/15/2022 at 9:28
== END ==
PROVIDERS: PCP Family Medicine; Referring Provider Family Medicine; Visit Provider Family Medicine
DX: R91.1 Solitary pulmonary nodule (principal); R06.02 Shortness of breath; N20.0 Calculus of kidney
CPT/HCPCS: 71250

== ENCOUNTER → 2023-03-23 17:00 | Outpatient (CLI) | payer OTHER, SELFPAY | PROVIDERS: PCP Family Medicine; Visit Provider Nurse Practitioner Family | DX: R30.0 Dysuria (principal) | CPT/HCPCS: 87077; 87086; 87186 ==

== ENCOUNTER → 2023-06-10 11:58 | Outpatient (CLI) | payer OTHER, SELFPAY ==
--- NOTE | 2023-06-10 12:01 | DI.MG.S_ITS ---
BILATERAL DIGITAL SCREENING MAMMOGRAM 3D/2D WITH CAD: 06/10/2023 CLINICAL: Routine screening. Comparison is made to exam dated: 11/07/2021 mammogram - [facility]. There are scattered areas of fibroglandular density in both breasts (category b / 25%-50% glandular tissue). Current study was also evaluated with a Computer Aided Detection (CAD) system. No significant masses, calcifications, or other findings are seen in either breast. There has been no significant interval change. IMPRESSION: NEGATIVE There is no mammographic evidence of malignancy. A 1 year screening mammogram is recommended. Based on the Tyrer Cuzick model (a risk assessment model) the patient's lifetime risk is 5.7% and her 10 year risk is 1.4%. According to the ACR, ACS, and NCCN guidelines, an annual breast MRI exam along with mammogram is recommended if the patient's lifetime risk is 20% or greater. This exam was interpreted at Station ID: [id number]. NOTE: For mammograms, a report in lay terms will be sent to the patient. Approximately 15% of breast malignancies will not be visualized mammographically. In the management of a palpable breast mass, a negative mammogram must not discourage biopsy of a clinically suspicious lesion. Electronically Signed By: Jack longoria/scott:06/10/2023 16:26:38 letter sent: Normal Exam ACR BI-RADS Category 1: Negative [id number]
[2023-06-10 12:42] LABS: Add Manual Diff / Slide Review NO; Basophils Absolute Auto 0 /uL (0-100); Basophils Percent Auto 0.7 % (0-2); Eosinophils Absolute Auto 1300 /uL (0-450); Eosinophils Percent Auto 18.8 % (2-4); Hematocrit 41.5 % (36-46); Hemoglobin 14.1 g/dL (12.0-16.0); Lymphocytes Absolute Auto 1900 /uL (1100-4500); Lymphocytes Percent Auto 27.2 % (25-40); Mean Corpuscular Hemoglobin 30.8 PG (26-34); Mean Corpuscular Volume 90.5 fL (80-100); Monocytes Absolute Auto 400 /uL (0-900); Monocytes Percent Auto 5.1 % (3-14); Neutrophils Absolute Auto 3400 /uL (1500-7000); Neutrophils Percent Auto 48.2 % (50-75); Platelet Count 264 X10^3/uL (150-400); Red Blood Cell Count 4.59 X10^6/uL (4.0-5.2); Red Cell Distribution Width 13.7 % (11.6-14.8); White Blood Cell Count 7.1 X10^3/uL (4.5-11.0)
[2023-06-10 13:07] LABS: Alanine Aminotransferase 20 IU/L (<35); Albumin 4.6 g/dL (3.5-5.0); Albumin Globulin Ratio 1.5 (1.0-2.8); Alkaline Phosphatase 50 U/L (38-126); Aspartate Aminotransferase 28 IU/L (14-36); BUN Creatinine Ratio 34.2 (6-22); Bilirubin Total 0.5 mg/dL (0.2-1.3); Blood Urea Nitrogen 26 mg/dL (7-17); Calcium 10.1 mg/dL (8.4-10.2); Carbon Dioxide 29 mmol/L (22-32); Chloride 106 mmol/L (98-107); Cholesterol 224 mg/dL (140-199); Estimated Glomerular Filt Rate > 60 mL/min (>60); Glucose 73 mg/dL (70-100); HEMOLYSIS < 15 (0-50); Potassium 3.4 mmol/L (3.4-5.1); Sodium 142 mmol/L (137-145); Total Protein 7.6 g/dL (6.3-8.2); Triglycerides 91 mg/dL (35-150)
[2023-06-10 13:14] LABS: HDL Cholesterol 120 mg/dL (40-60); LDL Cholesterol Calculated 86 mg/dL (<100)
[2023-06-10 13:40] LABS: Free T3, Triiodothyronine Free 3.42 pg/mL (2.77-5.27); Free T4, Direct Thyroxine 0.97 ng/dL (0.78-2.19)
[2023-06-10 13:54] LABS: Thyroid Stimulating Hormone 1.95 uIU/mL (0.47-4.68)
[2023-06-10 15:22] LABS: Follicle Stimulating Hormone 166 mIU/mL; Luteinizing Hormone 135 mIU/mL
[2023-06-10 15:28] LABS: Hep C Virus Ab w/Reflex Quant NEGATIVE s/c (NEGATIVE)
[2023-06-11 19:36] LABS: Anti Thyroglobulin Antibody <1.0 IU/mL (0.0-0.9); Thyroid Peroxidase Antibodies 17 IU/mL (0-34)
[2023-06-16 15:10] LABS: Estrogen 54 pg/mL (.)
== END ==
LOC: MAMMO 11:59
PROVIDERS: PCP Family Medicine; Referring Provider Nurse Practitioner Family; Visit Provider Nurse Practitioner Family
DX: Z12.31 Encounter for screening mammogram for malignant neoplasm of breast (principal); R92.323 Mammographic fibroglandular density, bilateral breasts; N93.9 Abnormal uterine and vaginal bleeding, unspecified; I10 Essential (primary) hypertension; Z11.59 Encounter for screening for other viral diseases; Z13.220 Encounter for screening for lipoid disorders
CPT/HCPCS: 36415; 77063; 77067; 80053; 80061; 82672; 83001; 83002; 84439; 84443; 84481; 85025; 86376; 86800; 86803

== ENCOUNTER → 2023-06-19 15:34 | Outpatient (CLI) | payer OTHER, SELFPAY ==
--- NOTE | 2023-06-19 | DI.US.S_ITS ---
PROCEDURE: US PELVIC COMPLETE INDICATIONS: Abnormal uterine and vaginal bleeding TECHNIQUE: Real-time scanning was performed of the pelvic organs, with image documentation. Additional endovaginal scanning was necessary due to incomplete visualization of the adnexal and endometrial structures by transabdominal scanning. COMPARISON: [facility], US, US PELVIC COMPLETE, 06/27/2021, 8:12 FINDINGS: Uterus: Uterus is anteverted and normal in size at 7.9 x 4.1 x 5.3 cm. The myometrium is heterogeneous. The endometrium measures 3.8 mm combined thickness. There is a mid posterior focus of intramural echogenicity within the uterus measuring 1.3 x 0.8 x 1.7 cm. Ovaries: Not visualized. Adnexal regions are unremarkable. Other: No pathologic free abdominal or pelvic fluid. IMPRESSION: Overall appearance of uterine fibroid. We strive to produce accurate, complete, and clear reports of imaging services. To assist us in improving patient care, this report was composed using standard report templates and voice recognition software. Therefore, it may contain abnormal punctuation, insertions and/or omissions. Occasional wrong-word or sound-alike substitutions may occur. Though we review the report and make efforts to correct it, we do recommend that the report be read carefully in proper context to recognize any text inaccuracies. Dictated by: Ashanti Wilde M.D. on 06/19/2023 at 16:50 Approved by: Ashanti Wilde M.D. on 06/19/2023 at 16:52
== END ==
PROVIDERS: PCP Nurse Practitioner Family; Referring Provider Nurse Practitioner Family; Visit Provider Nurse Practitioner Family
DX: N93.9 Abnormal uterine and vaginal bleeding, unspecified (principal); D25.1 Intramural leiomyoma of uterus
CPT/HCPCS: 76830; 76856

== ENCOUNTER → 2024-04-03 15:50 | Outpatient (CLI) | payer OTHER, SELFPAY | PROVIDERS: PCP Family Medicine; Visit Provider Physician Assistant Surgical | DX: R30.0 Dysuria (principal) | CPT/HCPCS: 87086 ==

== ENCOUNTER → 2024-04-03 16:16 | Outpatient (CLI) | payer OTHER, SELFPAY ==
--- NOTE | 2024-04-03 16:17 | DI.RAD.S_ITS ---
PROCEDURE: XR KUB INDICATIONS: Left flank pain; hematuria TECHNIQUE: One view of the abdomen acquired. COMPARISON: [facility], CR, XR KUB, 05/10/2020, 8:34. FINDINGS: Surgical changes and devices: None. Bowel: Bowel gas pattern is normal. Moderate stool burden. Soft tissues: No suspicious abdominal calcifications. Visualized solid organ contours appear normal in size. Bones: No suspicious bony lesions. IMPRESSION: No renal stones are identified radiographically. Moderate stool burden, correlate for constipation. Dictated by: Damon Galicia M.D. on 04/03/2024 at 16:43 Approved by: Damon Galicia M.D. on 04/03/2024 at 16:43
== END ==
PROVIDERS: PCP Family Medicine; Referring Provider Physician Assistant Surgical; Visit Provider Physician Assistant Surgical
DX: R10.9 Unspecified abdominal pain (principal); R31.9 Hematuria, unspecified; R30.0 Dysuria
CPT/HCPCS: 74018; 87086

== ENCOUNTER 2024-04-09 10:12 | Emergency (ER) | payer OTHER, SELFPAY ==
[2024-04-09 10:19] VITALS: BP 172/81; PULSE 90; RESP 14; TEMP 36.4; O2SAT 100; BMI 28.5
--- NOTE | 2024-04-09 11:44 | DI.CT.S_ITS ---
PROCEDURE: CT ABDOMEN PELVIS W CON INDICATIONS: left flank pain hx stones; abd bloating vag spotting TECHNIQUE: After the administration of intravenous contrast, axial sections acquired from the lung bases to the pubic symphysis. Coronal and sagittal reformats were performed. For radiation dose reduction, the following was used: automated exposure control, adjustment of mA and/or kV according to patient size. COMPARISON: None. FINDINGS: Image quality: Diagnostic. Lower Chest: No significant findings. ABDOMEN: Liver: No solid mass. Gallbladder: No radiopaque gallstones or wall thickening. Biliary ducts: No biliary dilation. Pancreas: Mild dilatation of pancreatic duct measures up to 3.6 millimeters in diameter. No discrete pancreatic mass or peripancreatic fluid collection. Spleen: Size is within normal limits. Adrenal Glands: No adrenal nodules. Kidneys and Ureters: There is moderate to severe left-sided hydronephrosis and hydroureter extending to the level of left UVJ. No definite obstructing renal stone is seen. Multiple phleboliths are noted in lower pelvis. No right-sided hydronephrosis. No solid mass. No complex renal cystic lesion which requires follow up. Stomach and Bowel: There is no bowel obstruction. No abnormal bowel wall thickening or mesenteric fat stranding no evidence of acute appendicitis or diverticulitis.. No abscess collection. Peritoneum: No abnormal intraperitoneal fluid. No free air. Ventral Wall: No significant ventral hernia. Abdominal Nodes: No retroperitoneal or mesenteric adenopathy by size criteria. Vessels: Aorta and inferior vena cava are normal in size. PELVIS: Pelvic Organs: Unremarkable. Bladder: No bladder wall thickening, accounting for underdistention. Pelvic Nodes: No enlarged lymph nodes. Miscellaneous: No inguinal hernias are seen. Bones: No aggressive osseous abnormality. IMPRESSION: 1. Moderate to severe left-sided hydronephrosis and [id number] left-sided hydroureter extending to the level of UVJ. No definite calcified stone is seen. 2. No right-sided hydronephrosis or hydroureter. Normal appearing urinary bladder. 3. No bowel obstruction or abnormal bowel wall thickening. No free fluid or free air. 4. Nonspecific mild prominence of pancreatic duct without discrete pancreatic lesion seen. No common bile duct dilatation. Dictated by: Leon Garcia M.D. on 04/09/2024 at 13:21 Approved by: Leon Garcia M.D. on 04/09/2024 at 13:26
--- NOTE | 2024-04-09 11:47 | ED_ITS ---
HPI - Back Pain/Injury <Tali Zelaya PA-C - Last Filed: 04/09/24 20:58> General Chief Complaint: Back Pain/Injury Stated Complaint: Painful back, bowel issues Time Seen by Provider: 04/09/24 11:44 History of Present Illness HPI Narrative: Ms. Head is a very pleasant 53-year-old female with a past medical history of atrophic left kidney, numerous kidney stones, hypertension who presents to the emergency department for left flank pain, abdominal bloating x6 days. Patient went to the walk-in clinic on 04/03/2024 for acute left flank pain, hematuria, concern of kidney stone. She had a urinalysis performed which revealed blood and a KUB x-ray which revealed constipation. Patient was taking Flomax. However today the left flank pain worsened in addition to worsening bloating so she returned to the walk-in clinic but was sent to the ED for further workup. Patient states pain is severe and she would 1 episode of nonbloody vomiting today because of the pain. At this time the pain has gone away. Patient reports that she has been having some vaginal spotting for the last few days as well however reports that she is on estrogen and progesterone for menopause but she occasionally stopped the progesterone because she does not like the way it makes her feel which prompted her to have vaginal spotting. She denies fevers but admits to chills. Denies chest pain shortness of breath cough sore throat or flu symptoms. No dysuria. She is unsure if she is having hematuria or for just the vaginal spotting. She did use an enema earlier today and warm water with salt which resulted in soft bowel movement. Patient is currently grieving the sudden loss of her earlier this month. Related Data Home Medications Medication Instructions Recorded Confirmed albuterol sulfate 90 mcg/actuation 2 puff inhalation Q4-6H PRN 07/30/23 04/09/24 aerosol inhaler fluticasone 250 mcg-salmeterol 50 1 ea inhalation BID 07/30/23 04/09/24 mcg/dose blistr powdr for inhalation buprenorphine 2 mg-naloxone 0.5 mg 3 tab sublingual DAILY 04/09/24 04/09/24 sublingual tablet Previous Rx's Medication Instructions Recorded lisinopril 10 mg tablet 10 mg PO DAILY #90 tabs 09/09/23 estradiol 2 mg tablet 2 mg PO DAILY #60 tabs 02/11/24 tamsulosin 0.4 mg capsule 0.4 mg PO DAILY 3 weeks #21 caps 04/09/24 Allergies Allergy/AdvReac Type Severity Reaction Status Date / Time No Known Allergies Allergy Verified 04/09/24 10:19 Review of Systems <Tali Zelaya PA-C - Last Filed: 04/09/24 20:58> Review of Systems ROS Unobtainable: All systems reviewed & are unremarkable except as noted in HPI and below Patient History <Tali Zelaya PA-C - Last Filed: 04/09/24 20:58> Medical History Expected bereavement due to life event Chicken pox (~1979) Asthma Preventative health care Hypertension History of opioid abuse Vasomotor symptoms due to menopause Kidney stone (~2020) Surgical History Anesthesia History of nephrolithotomy with removal of calculi Family History Grandfather History of heart disease Social History Smoking Status: Former smoker Tobacco: How many years used: 20 quit status: has quit before alcohol intake: former substance use type: does not use Smoking Status: Former smoker alcohol intake frequency: 0-2 drinks per day Exam <Tali Zelaya PA-C - Last Filed: 04/09/24 20:58> Narrative Exam Narrative: GENERAL: 53 year old patient appears stated age. Well-developed patient, in no acute distress. Tearful. HEAD: Atraumatic. Normocephalic. NECK: Trachea midline. Cervical ROM intact. CARDIOVASCULAR: Regular rate and rhythm. RESPIRATORY: ?Nonlabored respirations. ?Speaking in clear, full sentences. ?Clear to auscultation. Breath sounds equal bilaterally. No wheezes, rales, or rhonchi. ? GASTROINTESTINAL: Abdomen soft, non-tender, nondistended. Bowel sounds present. EXTREMITIES: No edema or joint tenderness. BACK: Nontender without deformity or crepitance. No flank tenderness. No CVA tenderness. NEURO: AOx3. ?Clear speech. ?Moves all 4 extremities appropriately. SKIN: No rash or erythema of visible areas Initial Vital Signs Initial Vital Signs: Vital Signs Temperature 97.5 F L 04/09/24 10:19 Pulse Rate 90 04/09/24 10:19 Respiratory Rate 14 04/09/24 10:19 Blood Pressure 172/81 H 04/09/24 10:19 Pulse Oximetry 100 04/09/24 10:19 Oxygen Delivery Method Room Air 04/09/24 10:19 <Leslye Caruso DO - Last Filed: 04/14/24 00:01> Initial Vital Signs Initial Vital Signs: Vital Signs Temperature 97.5 F L 04/09/24 10:19 Pulse Rate 90 04/09/24 10:19 Respiratory Rate 14 04/09/24 10:19 Blood Pressure 172/81 H 04/09/24 10:19 Pulse Oximetry 100 04/09/24 10:19 Oxygen Delivery Method Room Air 04/09/24 10:19 Course <BONG Quinonez Last Filed: 04/09/24 20:58> Orders Ordered: Discontinued Medications Ketorolac Tromethamine (Ketorolac 30 Mg/Ml Vial) 15 mg IV NOW ONE Stop: 04/09/24 11:45 Last Admin: 04/09/24 11:55 Dose: 15 mg Documented By: LADONNA Vital Signs Vital signs: Vital Signs - 8 hr 04/09/24 14:59 Pulse Rate 58 L Blood Pressure 141/69 H Pulse Oximetry 100 Oxygen Delivery Method Room Air <Leslye Caruso DO - Last Filed: 04/14/24 00:01> Orders Ordered: Discontinued Medications Ketorolac Tromethamine (Ketorolac 30 Mg/Ml Vial) 15 mg IV NOW ONE Stop: 04/09/24 11:45 Last Admin: 04/09/24 11:55 Dose: 15 mg Documented By: LADONNA Vital Signs Vital signs: Vital Signs - 8 hr 04/09/24 14:59 Pulse Rate 58 L Blood Pressure 141/69 H Pulse Oximetry 100 Oxygen Delivery Method Room Air MDM - Back Pain/Injury <BONG Quinonez Last Filed: 04/09/24 20:58> Medical Records Attestation: I reviewed the patient's medical records. Lab Data 04/09/24 11:30 04/09/24 11:30 Labs: Lab Results 04/09/24 Range/Units 11:30 WBC 5.6 (4.5-11.0) X10^3/uL RBC 4.28 (4.0-5.2) X10^6/uL Hgb 13.1 (12.0-16.0) g/dL Hct 38.5 (36-46) % MCV 90.0 (80-100) fL MCH 30.7 (26-34) PG MCHC 34.1 (30-36) % RDW 13.8 (11.6-14.8) % Plt Count 256 (150-400) X10^3/uL Neut % (Auto) 57.5 (50-75) % Lymph % (Auto) 28.3 (25-40) % Cherry % (Auto) 6.8 (3-14) % Eos % (Auto) 6.6 H (2-4) % Baso % (Auto) 0.8 (0-2) % Neut # (Auto) 3200 (0587-2512) /uL Lymph # (Auto) 1600 (1579-5784) /uL Cherry # (Auto) 400 (0-900) /uL Eos # (Auto) 400 (0-450) /uL Baso # (Auto) 0 (0-100) /uL Sodium 137 (137-145) mmol/L Potassium 4.1 (3.4-5.1) mmol/L Chloride 105 (98-107) mmol/L Carbon Dioxide 26 (22-32) mmol/L BUN 17 (7-17) mg/dL Creatinine 0.86 (0.52-1.04) mg/dL Estimated GFR > 60 (>60) mL/min BUN/Creatinine Ratio 19.8 (6-22) Glucose 109 H (70-100) mg/dL Calcium 9.8 (8.4-10.2) mg/dL Total Bilirubin 0.3 (0.2-1.3) mg/dL AST 26 (14-36) IU/L ALT 22 (<35) IU/L Alkaline Phosphatase 46 (38-126) U/L Total Protein 7.4 (6.3-8.2) g/dL Albumin 4.6 (3.5-5.0) g/dL Globulin 2.8 (1.7-4.1) g/dL Albumin/Globulin Ratio 1.6 (1.0-2.8) Lipase 46 (23-300) U/L Urine RBC None seen (0-5/HPF) Urine WBC None seen (0-5/HPF) Ur Squamous Epith Cells None seen (0-5/HPF) Urine Bacteria None seen (None) Ur Culture Indicated? Cult not indicated Vol Urine Centrifuged 10ml (spun) Imaging Data CT scan - abdomen/pelvis: Radiologist's Impression: PROCEDURE: CT ABDOMEN PELVIS W CON INDICATIONS: left flank pain hx stones; abd bloating vag spotting TECHNIQUE: After the administration of intravenous contrast, axial sections acquired from the lung bases to the pubic symphysis. Coronal and sagittal reformats were performed. For radiation dose reduction, the following was used: automated exposure control, adjustment of mA and/or kV according to patient size. COMPARISON: None. FINDINGS: Image quality: Diagnostic. Lower Chest: No significant findings. ABDOMEN: Liver: No solid mass. Gallbladder: No radiopaque gallstones or wall thickening. Biliary ducts: No biliary dilation. Pancreas: Mild dilatation of pancreatic duct measures up to 3.6 millimeters in diameter. No discrete pancreatic mass or peripancreatic fluid collection. Spleen: Size is within normal limits. Adrenal Glands: No adrenal nodules. Kidneys and Ureters: There is moderate to severe left-sided hydronephrosis and hydroureter extending to the level of left UVJ. No definite obstructing renal stone is seen. Multiple phleboliths are noted in lower pelvis. No right-sided hydronephrosis. No solid mass. No complex renal cystic lesion which requires follow up. Stomach and Bowel: There is no bowel obstruction. No abnormal bowel wall thickening or mesenteric fat stranding no evidence of acute appendicitis or diverticulitis.. No abscess collection. Peritoneum: No abnormal intraperitoneal fluid. No free air. Ventral Wall: No significant ventral hernia. Abdominal Nodes: No retroperitoneal or mesenteric adenopathy by size criteria. Vessels: Aorta and inferior vena cava are normal in size. PELVIS: Pelvic Organs: Unremarkable. Bladder: No bladder wall thickening, accounting for underdistention. Pelvic Nodes: No enlarged lymph nodes. Miscellaneous: No inguinal hernias are seen. Bones: No aggressive osseous abnormality. IMPRESSION: 1. Moderate to severe left-sided hydronephrosis and [id number] left-sided hydroureter extending to the level of UVJ. No definite calcified stone is seen. 2. No right-sided hydronephrosis or hydroureter. Normal appearing urinary bladder. 3. No bowel obstruction or abnormal bowel wall thickening. No free fluid or free air. 4. Nonspecific mild prominence of pancreatic duct without discrete pancreatic lesion seen. No common bile duct dilatation. MDM Narrative Medical decision making narrative: 53-year-old female with a past medical history of atrophic left kidney, numerous kidney stones, hypertension who presents to the emergency department for left flank pain, abdominal bloating x6 days. Patient went to the walk-in clinic on 04/03/2024 for acute left flank pain, hematuria, concern of kidney stone. She had a urinalysis performed which revealed blood and a KUB x-ray which revealed constipation. Differential diagnosis includes but is not limited to nephrolithiasis, ureterolithiasis, hydronephrosis, UTI, pyelonephritis, postmenopausal bleeding, dysmenorrhea, irritable bowel syndrome, constipation, etc. On exam patient is in no acute distress, nontoxic appearing, vital signs appropriate except for mildly elevated blood pressure 172/81. Patient's pain is gone at this time however she was having severe left flank pain earlier today and also she is having abdominal bloating. We will check labs, urine micro, CT abdomen and pelvis with IV contrast for further evaluation of intra-abdominal pathology given left flank pain, vaginal bleeding, bloating. We will treat with Toradol this time. Labs reveal normal WBC count 5.6 hemoglobin 13.1 hematocrit 38.5. Normal renal function BUN 17 creatinine 0.86. LFTs and lipase normal. UA without blood or infection. CT scan of abdomen and pelvis reveal moderate to severe left-sided hydronephrosis and mild to moderate left-sided hydroureter extending to the level of the UVJ. No definite calcified stone is seen. Incidental finding of nonspecific mild prominence of the pancreatic duct without discrete pancreatic lesion seen. No common bile duct dilatation. Printed CT scan results and discuss it patient including incidental finding. Consulted urology in regards to left hydronephrosis. He reviewed the patient's imaging, suspect patient may have passed a stone recently. He recommended Flomax daily for the next 2-3 weeks and follow up with urology clinic for further evaluation and renal bladder ultrasound. Patient remained pain-free during ED stay. Recommended Flomax, hydration, ibuprofen/Tylenol if needed for pain, follow up with PCP and Urology. Patient verbalized understanding of all information and is agreeable to the plan. She is stable for discharge home. <Leslye Caruso DO - Last Filed: 04/14/24 00:01> Lab Data Labs: Lab Results 04/09/24 Range/Units 11:30 WBC 5.6 (4.5-11.0) X10^3/uL RBC 4.28 (4.0-5.2) X10^6/uL Hgb 13.1 (12.0-16.0) g/dL Hct 38.5 (36-46) % MCV 90.0 (80-100) fL MCH 30.7 (26-34) PG MCHC 34.1 (30-36) % RDW 13.8 (11.6-14.8) % Plt Count 256 (150-400) X10^3/uL Neut % (Auto) 57.5 (50-75) % Lymph % (Auto) 28.3 (25-40) % Cherry % (Auto) 6.8 (3-14) % Eos % (Auto) 6.6 H (2-4) % Baso % (Auto) 0.8 (0-2) % Neut # (Auto) 3200 (7005-7593) /uL Lymph # (Auto) 1600 (1427-4321) /uL Cherry # (Auto) 400 (0-900) /uL Eos # (Auto) 400 (0-450) /uL Baso # (Auto) 0 (0-100) /uL Sodium 137 (137-145) mmol/L Potassium 4.1 (3.4-5.1) mmol/L Chloride 105 (98-107) mmol/L Carbon Dioxide 26 (22-32) mmol/L BUN 17 (7-17) mg/dL Creatinine 0.86 (0.52-1.04) mg/dL Estimated GFR > 60 (>60) mL/min BUN/Creatinine Ratio 19.8 (6-22) Glucose 109 H (70-100) mg/dL Calcium 9.8 (8.4-10.2) mg/dL Total Bilirubin 0.3 (0.2-1.3) mg/dL AST 26 (14-36) IU/L ALT 22 (<35) IU/L Alkaline Phosphatase 46 (38-126) U/L Total Protein 7.4 (6.3-8.2) g/dL Albumin 4.6 (3.5-5.0) g/dL Globulin 2.8 (1.7-4.1) g/dL Albumin/Globulin Ratio 1.6 (1.0-2.8) Lipase 46 (23-300) U/L Urine RBC None seen (0-5/HPF) Urine WBC None seen (0-5/HPF) Ur Squamous Epith Cells None seen (0-5/HPF) Urine Bacteria None seen (None) Ur Culture Indicated? Cult not indicated Vol Urine Centrifuged 10ml (spun) Discharge Plan Departure Patient Disposition: Home Clinical Impression: Hydronephrosis of left kidney, Left flank pain Instructions: DI for Hydronephrosis-Adult Activity Restrictions/Additional Instructions: Dear Adilene, Thank you for coming into the emergency department today. You were evaluated for left flank pain and your CT scan revealed swelling of the left kidney and ureter, possibly due to a recently passed kidney stone. I have prescribed you Flomax to take once daily for the next 2-3 weeks. It is very important to follow up with [facility] in about 2-4 weeks for repeat evaluation of the left hydronephrosis. Please use ibuprofen and Tylenol if needed for pain but return to the emergency department if you develop any new or worsening symptoms such as fevers, chills, vomiting, severe pain, any other concerns. Please take Ibuprofen (Motrin/Advil) or Acetaminophen (Tylenol) for pain. These are available over the counter. You may take Ibuprofen 600 mg every 8 hours with food for pain. You may also take Acetaminophen 650 mg every 4-6 hours for pain. Do not exceed 3000 mg of Tylenol a day as this can cause liver damage. Do not drink alcohol with either of these medications. Please follow up with your primary care doctor within the next 2-3 days for ER follow-up. (If you do not have a PCP you can call [phone]. ?to schedule an appointment with an [facility] Primary Care Provider) IF YOU DEVELOP ANY NEW OR WORSENING SYMPTOMS, RETURN TO THE ER! Please read the attached instructions, they highlight more specific treatments and interventions for you at home. Thank you for letting me participate in your care, Tali Zelaya PA-C Prescriptions: New tamsulosin 0.4 mg capsule 0.4 mg PO DAILY 21 Days Qty: 21 0RF No Action buprenorphine-naloxone 2-0.5 mg tablet, sublingual 3 tab sublingual DAILY lisinopril 10 mg tablet 10 mg PO DAILY Qty: 90 3RF estradiol 2 mg tablet 2 mg PO DAILY Qty: 60 3RF fluticasone propion-salmeterol 250-50 mcg/dose blister with device 1 ea inhalation BID albuterol sulfate 90 mcg/actuation HFA aerosol inhaler 2 puff inhalation Q4-6H PRN Referrals: Christian Cardona DO [Physician] - (left hydronephrosis ) Tomi Vega DO [Primary Care Provider] - Stand Alone Forms: Patient Portal/API/Survey ED Sign-out <Leslye Caruso DO - Last Filed: 04/14/24 00:01> Cosign ED Attending Cosignature Attestation: I was available for consultation.
[2024-04-09] MEDS: KETOROLAC 30 MG/ML VIAL 15 MG IV (11:55)
[2024-04-09 11:57] LABS: Add Manual Diff / Slide Review NO; Basophils Absolute Auto 0 /uL (0-100); Basophils Percent Auto 0.8 % (0-2); Eosinophils Absolute Auto 400 /uL (0-450); Eosinophils Percent Auto 6.6 % (2-4); Hematocrit 38.5 % (36-46); Hemoglobin 13.1 g/dL (12.0-16.0); Lymphocytes Absolute Auto 1600 /uL (1100-4500); Lymphocytes Percent Auto 28.3 % (25-40); Mean Corpuscular HGB Conc 34.1 % (30-36); Mean Corpuscular Hemoglobin 30.7 PG (26-34); Monocytes Absolute Auto 400 /uL (0-900); Monocytes Percent Auto 6.8 % (3-14); Neutrophils Absolute Auto 3200 /uL (1500-7000); Neutrophils Percent Auto 57.5 % (50-75); Platelet Count 256 X10^3/uL (150-400); Red Blood Cell Count 4.28 X10^6/uL (4.0-5.2); Red Cell Distribution Width 13.8 % (11.6-14.8); White Blood Cell Count 5.6 X10^3/uL (4.5-11.0)
[2024-04-09 12:05] LABS: Alanine Aminotransferase 22 IU/L (<35); Albumin 4.6 g/dL (3.5-5.0); Albumin Globulin Ratio 1.6 (1.0-2.8); Alkaline Phosphatase 46 U/L (38-126); Aspartate Aminotransferase 26 IU/L (14-36); BUN Creatinine Ratio 19.8 (6-22); Bilirubin Total 0.3 mg/dL (0.2-1.3); Blood Urea Nitrogen 17 mg/dL (7-17); Calcium 9.8 mg/dL (8.4-10.2); Carbon Dioxide 26 mmol/L (22-32); Chloride 105 mmol/L (98-107); Estimated Glomerular Filt Rate > 60 mL/min (>60); Globulin 2.8 g/dL (1.7-4.1); Glucose 109 mg/dL (70-100); HEMOLYSIS < 15 (0-50); Lipase 46 U/L (23-300); Potassium 4.1 mmol/L (3.4-5.1); Sodium 137 mmol/L (137-145); Total Protein 7.4 g/dL (6.3-8.2)
[2024-04-09 12:08] LABS: Bacteria Urine None Seen; Culture Indicated Urine Cult Not Indicated; RBC Urine None Seen (0-5/HPF); Squamous Epithelial Cell Urine None Seen (0-5/HPF); Urine Volume 10mL (spun); WBC Urine None Seen (0-5/HPF)
[2024-04-09 14:59] VITALS: BP 141/69; PULSE 58; O2SAT 100
== END 2024-04-09 15:18 | disposition home or self-care (01) ==
PROVIDERS: Emergency Medicine; Emergency Provider Physician Assistant; PCP Family Medicine
DX: N13.30 Unspecified hydronephrosis (principal); R10.9 Unspecified abdominal pain; R14.0 Abdominal distension (gaseous); Z87.442 Personal history of urinary calculi; R11.10 Vomiting, unspecified; I10 Essential (primary) hypertension; R31.9 Hematuria, unspecified
CPT/HCPCS: 36415; 74177; 80053; 81015; 83690; 85025; 96374; 99284; J1885; Q9967

== ENCOUNTER → 2024-08-24 06:50 | Outpatient (CLI) | payer OTHER, SELFPAY ==
--- NOTE | 2024-08-24 06:51 | DI.US.S_ITS ---
PROCEDURE: US PELVIC COMPLETE INDICATIONS: Heavy bleeding TECHNIQUE: Real-time scanning was performed of the pelvic organs, with image documentation. Additional endovaginal scanning was necessary due to incomplete visualization of the adnexal and endometrial structures by transabdominal scanning. COMPARISON: [facility], , US PELVIC COMPLETE, 06/19/2023, 15:46. FINDINGS: Uterus: 8.6 x 6.8 x 5.2 cm. Anteverted positioning. Endometrium measures 3 mm, nonthickened. Very heterogeneous uterine echotexture is seen. Intramural mid posterior fibroid measures 1.4 x 0.9 cm. Ovaries: Right ovary was not visualized today. Left ovary is nonenlarged at 3 cc. Other: No pathologic free fluid. IMPRESSION: Very heterogeneous uterine echotexture, nonspecific, sometimes seen with adenomyosis. The endometrial stripe measures 3 mm, nonthickened. Slightly smaller intramural fibroid measures 1.4 cm. If there is sufficient clinical concern, pelvic MRI gynecologic protocol could be obtained. Dictated by: Brayan Stein M.D. on 08/24/2024 at 7:37 Approved by: Brayan Stein M.D. on 08/24/2024 at 7:39
== END ==
LOC: US 06:50
PROVIDERS: PCP Family Medicine; Referring Provider Student in an Organized Health Care Education/Training Program; Visit Provider Student in an Organized Health Care Education/Training Program
DX: N92.0 Excessive and frequent menstruation with regular cycle (principal); D25.1 Intramural leiomyoma of uterus
CPT/HCPCS: 76830; 76856